=== PATIENT | male | born 1980 | race Caucasian/White ===

== ENCOUNTER 2022-12-17 19:24 | Emergency (ER) | payer OTHER, BC, SELFPAY ==
[2022-12-17 19:32] VITALS: BP 121/66; PULSE 59; RESP 18; TEMP 36.8; O2SAT 100; BMI 21.4
--- NOTE | 2022-12-17 19:39 | ED.SKABFB ---
HPI - Skin/Abscess/Foreign Bdy General Chief complaint: Skin/Abscess/Foreign Body Stated complaint: Bug bite Time Seen by Provider: 12/17/22 19:29 Source: patient Mode of arrival: Ambulatory History of Present Illness HPI narrative: 42-year-old male nonsmoker without chronic medical history presents for evaluation of a bug bite noted on the medial aspect of his right elbow yesterday. Today he noted a red streak extending up from the bite. He states it is minimally painful but he denies any systemic complaints such as dizziness, weakness or lightheadedness. He has no fever or chills. He denies any nausea or vomiting. He has no chronic medical history and is not immune compromised in any way. Related Data Previous Rx's Medication Instructions Recorded doxycycline hyclate 100 mg tablet 100 mg PO BID #20 tabs 12/17/22 Allergies Allergy/AdvReac Type Severity Reaction Status Date / Time No Known Drug Allergies Allergy Verified 12/17/22 19:32 Review of Systems Review of Systems Narrative: GENERAL: Denies chills, fatigue, malaise, fever, sweats. HEENT: Denies sinus pain, ear pain, sore throat, difficulty swallowing, dizziness. RESPIRATORY: Denies dyspnea, cough, wheezing, hemoptysis, sputum. CARDIOVASCULAR: Denies chest pain, palpitations, orthopnea, edema, GASTROINTESTINAL: Denies nausea, vomiting, abdominal pain, diarrhea, constipation, melena. : Denies dysuria, frequency, incontinence, hematuria, urinary retention. MUSCULOSKELETAL: denies weakness, joint pain, or bony pain SKIN: see HPI NEUROLOGIC: Denies weakness, headache, numbness, change in speech, confusion, seizures, incoordination. PSYCHIATRIC: No concerning psychosocial issues. 12 point review of systems is negative except for those stated above Patient History Social History Smoking Status: Never smoker Smoking Status: Never smoker alcohol intake frequency: a few times a week Substance Use Type: does not use Exam Narrative Exam Narrative: GEN: AOx3 and in mild distress EYES: Pupils are equal, round, and reactive to light and accommodation. Extraoccular muscles are intact bilaterally. There is no subconjunctival hemorrhage or exudate. CHEST: Lungs are clear to auscultation bilaterally and free of wheezes, rales, or rhonchi. Heart rate is regular rhythm, there are no murmurs, clicks, rubs, or gallops. There is no chest wall tenderness. ABD: Abdomen is soft and nontender. There is no guarding or rebound. Bowel sounds are normal in all 4 quadrants. There is no mass or organomegaly. EXT: Full painless ROM of all extremities with no loss of sensation or strength. SKIN: small circular erythematous lesion on medial aspect of RUE and associated lymphangitis. single tender axillary node. No induration or fluctuance Initial Vital Signs Initial Vital Signs: Vital Signs Temperature 98.2 F 12/17/22 19:32 Pulse Rate 59 L 12/17/22 19:32 Respiratory Rate 18 12/17/22 19:32 Blood Pressure 121/66 12/17/22 19:32 Pulse Oximetry 100 12/17/22 19:32 Oxygen Delivery Method Room Air 12/17/22 19:32 Course Orders Ordered: Discontinued Medications Doxycycline Hyclate (Doxycycline Hyclate 100 Mg Tablet) 100 mg PO NOW ONE Stop: 12/17/22 19:45 Last Admin: 12/17/22 19:55 Dose: 100 mg Documented By: Sodium Chloride (Normal Saline 0.9%) 1,000 mls @ 1,000 mls/hr IV BOLUS ONE Stop: 12/17/22 20:35 Last Admin: 12/17/22 19:59 Dose: Not Given Documented By: ALEX Ondansetron HCl (Ondansetron 4 Mg/2 Ml Inj) 4 mg IV NOW PRN PRN Reason: Nausea And Vomiting Ondansetron HCl (Ondansetron 4 Mg Odt) 4 mg SL NOW PRN PRN Reason: Nausea And Vomiting Vital Signs Vital signs: Vital Signs - 8 hr 12/17/22 19:32 Temperature 98.2 F Pulse Rate 59 L Respiratory Rate 18 Blood Pressure 121/66 Pulse Oximetry 100 Oxygen Delivery Method Room Air MDM - Skin/Abscess/Foreign Bdy MDM Narrative Medical decision making narrative: 42-year-old male otherwise healthy presents with a small bug bite or other skin lesion with lymphangitis spread. He has no fluctuance or induration. No drainage. No systemic complaints such as fever, chills nor nausea or vomiting. No indication for incision and drainage. No indication for lab workup. Patient appropriate for discharge with 1st dose of antibiotic given here and remainder sent to his pharmacy of choice. Return precautions discussed including increasing or circumferential redness, pain, complaints such as dizziness, weakness, lightheadedness, fever, chills, nausea, vomiting. Patient understands and agrees with the diagnosis and plan Discharge Plan Departure Patient Disposition: Home Clinical Impression: Cellulitis Instructions: DI for Cellulitis -- Adult Activity Restrictions/Additional Instructions: *You have been diagnosed with [right arm cellulitis] *What to do: *Please continue to take your regular medications as directed. [ x] New medication prescriptions sent to your pharmacy: [[facility] ] [ ] New medication written as a paper prescription [ ] No new medications given *Please follow up with your primary care provider in 2-3 days, call for an appointment. Let them know you were seen in the Emergency Department and that we ask that you be seen in follow up. We will electronically transmit a record of today's note if your PCP is in our system *If you do not have a primary care provider please contact the [facility] Resource line at [phone]. They will ask some questions about your medical history and help get you set up with a doctor in the community. *Return to Emergency Department if you should have any new, worsening or concerning symptoms, such as [fever greater than 101 F, shaking chills, worsening pain, persistent vomiting or other bothersome symptoms] Prescriptions: New doxycycline hyclate 100 mg tablet 100 mg PO BID Qty: 20 0RF Stand Alone Forms: Patient Portal/API
[2022-12-17] MEDS: DOXYCYCLINE HYCLATE 100 MG TABLET PO (19:55)
== END 2022-12-17 20:15 | disposition home or self-care (01) ==
PROVIDERS: Emergency Provider Emergency Medicine
DX: L03.113 Cellulitis of right upper limb (principal)
CPT/HCPCS: 99283